=== PATIENT | female | born 1970 | race African-American/Black ===

== ENCOUNTER 2017-04-27 15:33 | Emergency (ER) | payer OTHER, BC ==
[~2017-04-27] VITALS: Ht 162.6 cm; Wt 122.9 kg
[2017-04-27 15:40] VITALS: BP 129/78
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
[2017-04-27 16:55] LABS: BILIRUBIN,URINE NEGATIVE (NEG); GLUCOSE,URINE NEGATIVE (NEG); NITRITE,URINE NEGATIVE (NEG); PH,URINE 6.5; PROTEIN,URINE NEGATIVE (NEG-TRACE); UROBILINOGEN,URINE 0.2 mg/dL (0.2 mg/dL)
[2017-04-27 17:09] LABS: BACTERIA,URINE MANY /HPF (0-FEW); RBC,URINE 0 /HPF (0-2); SQUAMOUS EPITHELIAL CELL,UR MANY /LPF
[2017-04-27] MEDS ORDERED: CEPH500T PO (17:14)
[2017-04-27] MEDS ORDERED: CYCL10TA2 PO (17:14)
== END 2017-04-27 17:19 | disposition home or self-care (01) ==
LOC: ER 15:33
DX: M54.5 Low back pain (principal); Z88.5 Allergy status to narcotic agent; V89.2XXA Person injured in unspecified motor-vehicle accident, traffic, initial encounter; Y93.89 Activity, other specified; Y99.8 Other external cause status; Y92.89 Other specified places as the place of occurrence of the external cause
CPT/HCPCS: 81001; 87086; 99284

== ENCOUNTER 2020-05-28 13:30 | Emergency (ER) | payer BC, OTHER ==
[~2020-05-28] VITALS: Ht 162.6 cm; Wt 132.0 kg
[~2020-05-28 13:30] MED LIST: CEPH500T PO; CYCL10TA2 PO
[2020-05-28 14:09] VITALS: BP 174/96
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
[2020-05-28] MEDS ORDERED: IBUP-1007 PO (15:21)
[2020-05-28] MEDS ORDERED: ORPH100T PO (15:21)
[2020-05-28] MEDS ORDERED: HYDR-3164 PO (15:21)
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
== END 2020-05-28 15:32 | disposition home or self-care (01) ==
LOC: ER 13:30
DX: G89.11 Acute pain due to trauma (principal); M54.2 Cervicalgia; I10 Essential (primary) hypertension; F12.90 Cannabis use, unspecified, uncomplicated; Z90.710 Acquired absence of both cervix and uterus; Z87.891 Personal history of nicotine dependence; V98.8XXA Other specified transport accidents, initial encounter; Y93.89 Activity, other specified; Y92.481 Parking lot as the place of occurrence of the external cause; Y99.8 Other external cause status
CPT/HCPCS: 70450; 72125; 99285